=== PATIENT | male | born 1980 | race Caucasian/White ===

== ENCOUNTER 2016-06-01 23:25 | Emergency (ER) | payer OTHER ==
--- NOTE | 2016-06-02 03:10 | ED NURSING NOTES ---
Clinical Report - [facility] [place] [address] 06/01/2016 23:26 Patient: THU MASON TRIAGE Triage time 23:35 Jun 01 2016. Acuity: LEVEL 3. Chief Complaint: DRUG OVERDOSE and SUICIDE ATTEMPT. Alert. BRAYAN COMA SCORE: [place] Coma Scale: 15- eyes open spontaneously (4); best verbal response- oriented x 4 (5); best motor response- obeys commands (6). --23:48 Chilo Mosley R.N. 23:38 06/01/16. BP: 140/110. HR: 98. RR: 16. O2 saturation: 96% on room air. Temp: 98.2 F. --23:48 Chilo Mosley R.N. 23:38 06/01/16. Pain level now: 0/10. --07:14 Chilo Mosley R.N. Weight: 74.8 kg stated. Height/Length: 71 inches Per Patient. BMI: 23. --23:42 Chilo Mosley R.N. Medications None. --23:42 Chilo Mosley R.N. Allergies No Known Drug Allergy. --23:42 Chilo Mosley R.N. History Arrived by private vehicle. Historian: patient. Unaccompanied. Primary physician (none). ( Intentional Drug OD. Pt states that he is not sure what kind of pills he took, that they were his mother's and he thinks that they were sedatives.). This occurred about 30 minutes ago. He has had depression and suicidal thoughts. 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 SOCIAL HX: Heavy tobacco smoker (cigarette)- 1 pack per day. Alcohol use. (Mary 4 shots tonight). History of occasional drug use: marijuana. No infectious disease exposure. ABUSE ASSESSMENT: No report of abuse. SELF HARM ASSESSMENT: A self harm assessment was performed. The patient answered "yes" to the question "Have you recently felt down, depressed, or hopeless?", "Have you noticed less interest or pleasure in doing things?", "Do you have thoughts of harming or killing yourself?", "Are you here because you tried to hurt yourself?" and "Have you ever tried to hurt yourself before today?" and "no" to the question "Have you recently had thoughts about harming or killing others?" and "Do you have any dangerous items in your possession?". The patient reports their behavior. In the ED the patient has made suicidal comments. He has been placed under 1-on-1 and continuous supervision. He was placed in direct sight of the nurses station. Clothes and valuables were removed and placed in a safe. The ED physician has been notified. FALL RISK ASSESSMENT: Fall risk assessment completed. No fall risk identified. NUTRITIONAL RISK ASSESSMENT: The nutritional risk assessment revealed no deficiencies. FUNCTIONAL ASSESSMENT: Functional assessment: no impairments noted. LEARNING NEEDS ASSESSMENT: The learning needs assessment revealed no barriers. SKIN INTEGRITY ASSESSMENT: Skin integrity risk assessment completed. No skin integrity risk identified. --23:48 Chilo Mosley R.N. PROBLEMS: Nerve Injury, Upper Extremity. Ganglion Cyst. Contusion. Lifestyle / Substance Problems. Hypertension. Tetanus Status. Bipolar Disorder. Depression. Diverticulitis. Herpes Zoster. --23:44 Chilo Mosley R.N. Interventions ID band on patient. To treatment room. --23:48 Chilo Mosley R.N. PHYSICAL ASSESSMENT 01:00 06/02/16. Ambulatory to room. GENERAL / NEURO / PSYCH: Alert. Oriented X 4. Appears in no acute distress. Appears frustrated. Patient appears calm and cooperative. Gag reflex present. Speech within normal limits. RESPIRATORY: Respirations not labored. Breath sounds within normal limits. CVS: Normal sinus rhythm noted. Capillary refill less than 2 seconds. GI / : Abdomen soft and nontender. Bowel sounds within normal limits. SKIN: Skin intact. Skin is warm and dry. Skin color is within normal limits. --01:31 Chilo Mosley R.N. NURSING PROGRESS NOTES EKG time: (0000). EKG was ordered, performed by a tech and shown to the ED physician. --00:02 Susanne Lala 01:07 06/02/2016 Site #1 started via IV in the left antecubital space with an 20g angiocath, with aseptic technique; one attempt. Blood drawn: rainbow set. Labeled in the presence of the patient and sent to the lab. Saline lock flushed with 10 mL saline. --01:13 Karina Lira R.N. 01:07 06/02/2016 Started bag #1 1000 mL IV Fluids IV NS (Saline); at 999 mL/hr over 1 hour(s) via site #1 via IV pump. Allergies verified and confirmed 5 rights. IV patency established. IV site checked: no pain, redness, or swelling. IV flushed thoroughly pre- and post-medication administration. --01:14 Karina Lira R.N. 23:45. Patient gowned. Reassurance given. Suicide precautions initiated. Patient identifiers checked. Call light placed in reach. Side rails up x 1. Bed placed in lowest position. Brakes of bed on. Patient ready for evaluation- chart flagged and ED physician notified. --01:33 Chilo Mosley R.N. pt just medically cleared by . --02:18 Karina Lira R.N. ( PAT TEAM NOTIFIED). --02:25 Adryan Malave, ER Instructor Traffic Safety 02:20 06/02/16. BP: 123/75. HR: 84. O2 saturation: 95%. Temp: 98.1 F. --02:26 Susanne Lala 03:40 06/02/2016 Magnesium Sulfate (Magnesium Sulfate in D5W) IVP 2 gm given over 2 hour(s) via site #1. Allergies verified and confirmed 5 rights. IV patency established. IV site checked: no pain, redness, or swelling. IV flushed thoroughly pre- and post-medication administration. IVP given by RN. --03:50 Chilo Mosley R.N. 03:50 06/02/16. ( PAT account retention representative here with pt). --03:52 Chilo Mosley R.N. 01:00 06/02/16. BP: 121/77. HR: 98. RR: 16. O2 saturation: 95% on room air. Pain level now: 0/10. --03:54 Chilo Mosley R.N. 02:00 06/02/16. BP: 124/78. HR: 93. RR: 16. O2 saturation: 95% on room air. Pain level now: 0/10. --03:55 Chilo Mosley R.N. 03:00 06/02/16. BP: 118/71. HR: 97. RR: 13. O2 saturation: 95% on room air. --03:57 Chilo Mosley R.N. 04:25. ( Magnesium 1 GM IVPB completed). --06:19 Chilo Mosley R.N. 01:40 06/02/2016 Potassium Chloride (Potassium Chloride ER) PO Tablets 60 meq given. Allergies verified and confirmed 5 rights. --06:22 Chilo Mosley R.N. 04:25 06/02/2016 Site #1 removed upon admission. Catheter intact. Manual pressure, bandaid and bandage applied. --06:20 Chilo Mosley R.N. <<STRICKEN ENTRY-- 06:41 06/02/16. BP: 149/94. HR: 104. RR: 16. O2 saturation: 97%. Temp: 99 F. Pain level now: 11/28. --06:42 Chilo Mosley R.N. --END STRIKE>> Charted on wrong patient. --07:10 Chilo Mosley R.N. 02:10 06/02/2016 IV Fluids IV NS Discontinued: bag #1 infused. Total amount infused: 1000 mL. IV patency established. IV site checked: no pain, redness, or swelling. IV flushed thoroughly. --07:12 Chlio Mosley R.N. DISPOSITION / DISCHARGE Departure time: 0430. --04:55 Chilo Mosley R.N. 04:30. Condition at departure: improved. No learning barriers present. Discharge instructions provided and reviewed with the patient and parent. Reviewed medication(s) (prescritpion given to pt). Reviewed referral to a psychologist for followup. Patient and parent verbalized understanding. Written instructions provided in Vietnamese. The patient was discharged by the physician. He was discharged home and accompanied by parent. He left the Emergency Department ambulatory and via private vehicle. Parent driving. --04:57 Chilo Mosley R.N. 04:25 06/02/16. BP: 117/76. HR: 62. RR: 16. O2 saturation: 99% on room air. Temp: 98.5 F (oral). Pain level now: 0/10. --04:59 Chilo Mosley R.N. Locked/Released at 06/02/2016 7:16 by Chilo Mosley R.N.
--- NOTE | 2016-06-02 03:10 | ED ORDER SUMMARY ---
..... Patient: THU MASON OrderSheet [facility] VisitID: [id number] [address] [place] [address] 36y, M Registration Date/Time: 06/01/2016 ORDER SHEET Weight: 74.8 kg (stated) Allergies: No Known Drug Allergy GENERAL ORDERS: Client Relations Associate (Continuous) (possible OD) (23:34 06/01/2016 Christopher Rodriguez) (1:14 JRomanelli R.N.) (1:15 HKone R.N.) CBC w Diff Urgent (23:35 06/01/2016 Christopher Rodriguez) (Ack 23:37 CHagtomy ER Chore Tender) (1:24 Stephon R.N.) CMP Urgent (23:35 06/01/2016 Christopher Rodriguez) (Ack 23:37 CHagerty ER Chore Tender) (1:24 Juanelli R.N.) UA-Culture if indicated Urgent (23:35 06/01/2016 Christopher Rodriguez) (Ack 23:37 CHagerty ER Chore Tender) (3:47 Stephon R.N.) PT with INR Urgent (23:35 06/01/2016 Christopher Rodriguez) (Ack 23:37 CHagtomy ER Chore Tender) (1:24 JRomanelli R.N.) PTT Urgent (23:35 06/01/2016 Christopher Rodriguez) (Ack 23:37 CHagerty ER Chore Tender) (1:24 omanwilner R.N.) Urine Drug Screen Urgent (23:35 06/01/2016 Christopher Rodriguez) (Ack 23:37 CHagerty ER Chore Tender) (3:47 Stephon R.N.) CPK Urgent (23:35 06/01/2016 Christopher Rodriguez) (Ack 23:37 CHagerty ER Chore Tender) (1:24 Stephon R.N.) Salicylate Level Urgent (23:35 06/01/2016 Christopher Rodriguez) (Ack 23:37 CHagerty ER Chore Tender) (1:24 Stephon R.N.) Ethyl Alcohol Urgent (23:35 06/01/2016 Christopher Rodriguez) (Ack 23:37 CHagerty ER Chore Tender) (1:24 Stephon R.NOle) Acetaminophen Level Urgent (23:35 06/01/2016 Christopher Rodriguez) (Ack 23:37 Gary ER Chore Tender) (1:24 Stephon R.N.) EKG - ER Stat (23:35 06/01/2016 Christopher Rodriguez) (0:07 Jocelynnegekimana) Pulse oximeter (23:35 06/01/2016 Christopher Rodriguez) (1:15 HKone R.N.) MEDICATION ORDERS: Potassium Chloride PO 60 meq (NOW) (01:38 06/02/2016 Christopher Rodriguez) (Ack 2:09 Rey R.NOle) (6:22 Stephon Lyons.N.) IV FLUIDS: IV NS : initial bolus 1000 mL (1000 mL/hr), then none - for X1 (NOW) (23:35 06/01/2016 Christopher Rodriguez) (1:14 Rey R.N.) Magnesium Sulfate IV 2 gm/50mL (over 2 hours) (03:49 06/02/2016 Stephon Lemon verbal order read back to Christopher Rodriguez) (3:50 Stephon R.NOle) ORDER SHEET NOTES: [Electronically signed by Hong Dalton Dr. (05:08 06/02/2016)] [Electronically signed by Chilo Mosley R.N. (07:16 06/02/2016)] [Electronically locked/signed by Chilo Mosley R.N. (07:16 06/02/2016)]
--- NOTE | 2016-06-02 03:10 | ED ORDER SUMMARY ---
..... Patient: THU MASON OrderSheet [facility] VisitID: [id number] [address] [place] [address] 36y, M Registration Date/Time: 06/01/2016 ORDER SHEET Weight: 74.8 kg (stated) Allergies: No Known Drug Allergy GENERAL ORDERS: Traveling Storekeeper (Continuous) (possible OD) (23:34 06/01/2016 Christopher Rodriguez) (1:14 JRomanelli R.N.) (1:15 HKone R.N.) CBC w Diff Urgent (23:35 06/01/2016 Christopher Rodriguez) (Ack 23:37 CHagtomy ER Banner Painter) (1:24 Stephon R.N.) CMP Urgent (23:35 06/01/2016 Christopher Rodriguez) (Ack 23:37 CHagerty ER Banner Painter) (1:24 Juanelli R.N.) UA-Culture if indicated Urgent (23:35 06/01/2016 Christopher Rodriguez) (Ack 23:37 CHagerty ER Banner Painter) (3:47 Stephon R.N.) PT with INR Urgent (23:35 06/01/2016 Christopher Rodriguez) (Ack 23:37 CHagtomy ER Banner Painter) (1:24 JRomanelli R.N.) PTT Urgent (23:35 06/01/2016 Christopher Rodriguez) (Ack 23:37 CHagerty ER Banner Painter) (1:24 omanwilner R.N.) Urine Drug Screen Urgent (23:35 06/01/2016 Christopher Rodriguez) (Ack 23:37 CHagerty ER Banner Painter) (3:47 Stephon R.N.) CPK Urgent (23:35 06/01/2016 Christopher Rodriguez) (Ack 23:37 CHagerty ER Banner Painter) (1:24 Stephon R.N.) Salicylate Level Urgent (23:35 06/01/2016 Christopher Rodriguez) (Ack 23:37 CHagerty ER Banner Painter) (1:24 Stephon R.N.) Ethyl Alcohol Urgent (23:35 06/01/2016 Christopher Rodriguez) (Ack 23:37 CHagerty ER Banner Painter) (1:24 Stephon R.NOle) Acetaminophen Level Urgent (23:35 06/01/2016 Christopher Rodriguez) (Ack 23:37 Gary ER Banner Painter) (1:24 Stephon R.N.) EKG - ER Stat (23:35 06/01/2016 Christopher Rodriguez) (0:07 Jocelynnegekimana) Pulse oximeter (23:35 06/01/2016 Christopher Rodriguez) (1:15 HKone R.N.) MEDICATION ORDERS: Potassium Chloride PO 60 meq (NOW) (01:38 06/02/2016 Christopher Rodriguez) (Ack 2:09 Rey R.NOle) (6:22 Stephon Lyons.N.) IV FLUIDS: IV NS : initial bolus 1000 mL (1000 mL/hr), then none - for X1 (NOW) (23:35 06/01/2016 Christopher Rodriguez) (1:14 Rey R.N.) Magnesium Sulfate IV 2 gm/50mL (over 2 hours) (03:49 06/02/2016 Stephon Lemon verbal order read back to Christopher Rodriguez) (3:50 Stephon R.NOle) ORDER SHEET NOTES: [Electronically signed by Hong Dalton Dr. (05:08 06/02/2016)] [Electronically signed by Chilo Mosley R.N. (07:16 06/02/2016)] [Electronically locked/signed by Chilo Mosley R.N. (07:16 06/02/2016)]
--- NOTE | 2016-06-02 03:10 | ED CLINICAL REPORT ---
Clinical Report - Physicians/Mid Levels [facility] [address] [place] [address] 06/01/2016 23:26 Patient: THU MASON Arrived- By private vehicle. Historian- patient. HISTORY OF PRESENT ILLNESS Chief Complaint: DRUG OVERDOSE and SELF-INJURY. This occurred today. No toxic symptoms present. No toxic symptoms present. Multiple drugs taken- does not know the pills. The patient sought help. He has experienced situational problems. Alcohol consumption recently. The symptoms are described as moderate. The patient has been upset. Has had suicidal thoughts. Similar symptoms previously: Many times. Recent medical care: Not recently seen/assessed. REVIEW OF SYSTEMS No chest pain or abdominal pain. All systems otherwise negative, except as recorded above. PAST HISTORY See nurses notes. Medications: None. Allergies: No Known Drug Allergy. SOCIAL HISTORY Smoker- current status unknown. Occasional alcohol use. History of occasional drug use: marijuana. Has social support. Has place to stay. FAMILY HISTORY Negative. ADDITIONAL NOTES The nursing notes have been reviewed. PHYSICAL EXAM Vital Signs: 06/01/2016 23:38 BP: 140/110. HR: 98. RR: 16. O2 saturation: 96%. Temp: 98.2 F. Blood pressure normal. Oxygen saturation normal. Appearance: Alert. Oriented X3. No acute distress. Eyes: Pupils equal, round and reactive to light. No nystagmus. Extraocular movements normal. ENT: Normal ENT inspection. TM's normal. Pharynx normal. Neck: Normal inspection. Neck supple. CVS: Normal heart rate and rhythm. Heart sounds normal. Pulses normal. Respiratory: No respiratory distress. Breath sounds normal. Abdomen: Soft and nontender. No organomegaly. Back: Normal inspection. Skin: Skin warm and dry. Normal skin color. No rash. Normal skin turgor. Extremities: Extremities exhibit normal ROM. No lower extremity edema. Neuro: Alert. Oriented X 3. Speech normal. Cranial nerves normal (as tested). No cerebellar findings. No motor deficit. No sensory deficit. (no HI or hallucinations. + SI. Patient is tearful and upset. Mood is depressed. Affect is congruent.). LABS, X-RAYS, AND EKG EKG: No acute ischemia. Tachycardia (101). Normal P waves. Normal YVETTE. Normal QRS complex. LVH. Normal axis. Normal ST and T waves, QT and QTc. sinus tach with minimal possible LVH VS normal variant. The study has been interpreted contemporaneously by me. The study has been independently viewed by me. The EKG appears to be a good tracing. Laboratory Tests: UA-Culture if indicated: (SCOTT: 06/02/2016 01:30) ( MsgRcvd 06/02/2016 01:47) Final results Test Result Flag Units (Reference) URINE COLOR YELLOW URINE APPEARANCE CLEAR URINE GLUCOSE NEGATIVE (NEGATIVE) URINE BILIRUBIN NEGATIVE (NEGATIVE) URINE KETONE NEGATIVE (NEGATIVE) URINE SPECIFIC GRAVITY <= 1.005 L (1.010-1.030) URINE PH 7.0 (5.0-8.0) URINE PROTEIN NEGATIVE (NEGATIVE) URINE UROBILINOGEN 0.2 EU/dL (0.2-1.0) URINE NITRITE NEGATIVE (NEGATIVE) URINE BLOOD NEGATIVE (NEGATIVE) URINE LEUK ESTERASE NEGATIVE (NEGATIVE) URINE RBC 0-1 rbc/hpf (0-1) URINE WBC 0-1 wbc/hpf (0-1) URINE EPITHELIAL CELLS 0-1 EPI/hpf (0-5) URINE BACTERIA NONE SEEN (NONE SEEN) URINE COMMENT CULT NOT INDICATED URINE CULTURES ARE SET-UP BASED ON THE FOLLOWING CRITERIA:POSITIVE NITRITEPOSITIVE LEUKOCYTE ESTERASEGREATER THAN 10 WHITE BLOOD CELLSMODERATE (2+) OR GREATER BACTERIA CBC w Diff: (SCOTT: 06/02/2016 01:00) ( Mscvd 06/02/2016 01:18) Final results Test Result Flag Units (Reference) WHITE BLOOD COUNT 13.0 H K/uL (4.5-11.5) RED BLOOD COUNT 5.72 M/uL (4.50-5.90) HEMOGLOBIN 17.5 gm/dL (13.5-17.5) HEMATOCRIT 52.5 % (41.0-53.0) MEAN CELL VOLUME 92 fL (80-100) MEAN CORPUSCULAR HGB 31 pg (26-34) MEAN CORPUSCULAR HGB CONC 33 g/dL (31-37) RED CELL DISTRIBUTION WIDTH 13.1 % (11.6-14.8) PLATELET COUNT 244 K/uL (150-400) NEUTROPHIL % 73.0 % (50-75) LYMPH % 22.9 L % (25-40) MONO % 3.5 % (3-14) EOSINOPHIL % 0.3 % (0-4) BASOPHIL % 0.3 % (0-2) PT with INR: (SCOTT: 06/02/2016 01:00) ( MsgRcvd 06/02/2016 01:27) Final results Test Result Flag Units (Reference) INR 1.0 (0.8-1.2) Low Intensity Therapy: INR 1.5-2.0 PT range 18.5-23.1Mod.Intensity Therapy: INR 2.0-3.0 PT range 23.1-31.5High Intensity Therapy: INR 2.5-3.5 PT range 27.4-35.5High Intensity Therapy 2: INR 3.0-4.0 PT range 31.5-39.3 APTT 24 SECONDS (24-34) Urine Drug Screen: (SCOTT: 06/02/2016 01:30) ( MsgRcvd 06/02/2016 01:55) Final results Test Result Flag Units (Reference) AMPHETAMINE/METHAMPHETAMINE NEGATIVE (NEGATIVE) BARBITURATE NEGATIVE (NEGATIVE) BENZODIAZEPINE NEGATIVE (NEGATIVE) CANNABINOID NEGATIVE (NEGATIVE) COCAINE NEGATIVE (NEGATIVE) ECSTASY NEGATIVE (NEGATIVE) METHADONE NEGATIVE (NEGATIVE) OPIATE NEGATIVE (NEGATIVE) The urine drug screen is a qualitative screening test fordrug overdose and abuse. All screen results should beconsidered as presumptive.Drugs screened for are as follows:BenzodiazepinesCocaineAmphetamines/MetamphetaminesTHC (Tetrahydrocannabinol)OpiatesBarbituratesEcstasyMethadonePositive results are unconfirmed. For confirmation, notifythe lab for the specimen to be sent to the reference lab.All confirmations must be performed by a differentmethodology.The ingestion of natural herbal and plant productscontaining Ephedra/Ephedra metabolites can produce in urineone or more substances capable of cross reacting withamphetamine/methamphetamine immunoassays. These testsprovide a preliminary result only. A more specificalternative chemical method must be used to obtain aconfirmed analytical result. Salicylate Level: (SCOTT: 06/02/2016 01:00) ( MsgRcvd 06/02/2016 01:27) Final results Test Result Flag Units (Reference) SALICYLATE 4.9 mg/dL (2.8-20) CMP: (SCOTT: 06/02/2016 01:00) ( MsgRcvd 06/02/2016 01:39) Final results Test Result Flag Units (Reference) GLUCOSE 113 H mg/dL (70-110) BUN 5 L mg/dL (7-18) CREATININE 1.0 mg/dL (0.6-1.3) Estimated GFR >60 mL/min Estimated GFR- >60 mL/min Note: Persistent reduction over 3 months in eGFR<60 mL/min/1.73 m2 defines CKD. Patients with eGFR values>=60 mL/min/1.73 m2 may also have CKD if evidence ofpersistent proteinuria. Additional information may be foundat www.kidney.org. SODIUM 137 mmol/L (136-145) POTASSIUM 2.9 *L mmol/L (3.5-5.1) CRITICAL RESULTS CALLEDCalled to ALEX WRIGHT RN 06/02/16 0138Were 2 patient identifiers used? YWas the result read back? Y CHLORIDE 97 L mmol/L (98-107) CARBON DIOXIDE 29 mmol/L (21-32) CALCIUM 10.4 H mg/dL (8.5-10.1) TOTAL PROTEIN 8.4 H g/dL (6.4-8.2) ALBUMIN 4.8 g/dL (3.3-5.0) BILIRUBIN, TOTAL 1.0 mg/dL (0.0-1.0) ALKALINE PHOSPHATASE 104 U/L (46-116) AST (SGOT) 17 U/L (15-37) ALT (SGPT) 29 U/L (12-78) CPK 89 U/L (24-260) ETHYL ALCOHOL 27 H mg/dL (3-10) MAGNESIUM 1.6 L mg/dL (1.8-2.4) ACETAMINOPHEN < 3 L ug/mL (10-30) . PROGRESS AND PROCEDURES Course of Care: The patient is a pleasant cooperative 36-year-old male with past medical history significant for suicide attempts in the past presenting for evaluation of alleged ingestion. The patient is resting in bed in no acute distress. No signs of toxic ingestion at this time. Workup ordered for acute toxic ingestion ordered. Patient is agreeable to the treatment and plan. Will have patient evaluated by crisis counselor once patient has been medically cleared. Workup does not show any acute abdomen allergies other than hypokalemia and hypomagnesemia. Potassium and magnesium ordered. No acute abnormalities noted on EKG. Patient was evaluated by counselor. Patient is able to contract for safety. Patient has an appointment tomorrow at around 2:00pm. Patient is agreeable to the treatment and plan. Patient will be followed home by father. The father appears to be reliable at this time. Patient's father has also agreed to monitor patient. State that they're comfortable with returning home. Discussed with patient workup, diagnosis, home care, follow-up, and return cautions. All questions answered. The patient expressed understanding of these instructions and was agreeable to them. Did not feel patient is a danger to self or others at this time. Although the patient states that he has ingested multiple pills, did not find any signs of toxic abnormalities. Urine drug screen is negative. No signs of opioids or anytype of prescription medication otherwise. Patient also continues to be asymptomatic. Low likelihood of actual ingestion. CLINICAL IMPRESSION Intentional multi-drug overdose (unknown pills). 06/02/2016 03:00 BP: 118/71. HR: 97. RR: 13. O2 saturation: 95%. 06/02/2016 02:20 BP: 123/75. HR: 84. O2 saturation: 95%. Temp: 98.1 F. Adjustment disorder with depressed mood (acute). Blood pressure normal. Oxygen saturation normal. Hypokalemia (acute moderate without EKG changes). Mild hypomagnesemia. INSTRUCTIONS (Follow up as instructed by the crisis counselor). Warnings: GENERAL WARNINGS: Return or contact your physician immediately if your condition worsens or changes unexpectedly, if not improving as expected, or if other problems arise. Specifically return if pain, vomiting, bleeding, breathing difficulty or fever. worsening symptoms or other concerns. Your Current Medications: CONTINUE TAKING THE FOLLOWING MEDICATIONS: None*. Prescription Medications: Potassium Chloride 10 mEq: take 1 orally every 12 hours - Dispense thirty (30) No refills. Follow-up: Return to the emergency department as needed. Follow up with your doctor in three days. Reason for referral: recheck today's concerns. Summary of care provided to patient via paper. Screening today revealed the patient's blood pressure to be in the normal range. The patient should follow up with a primary care provider for blood pressure management. Understanding of the discharge instructions verbalized by patient. (Electronically signed by Hong Dalton Dr. 06/02/2016 5:08)
--- NOTE | 2016-06-02 07:17 | ED MAR SUMMARY ---
..... Medication Administration Record [facility] [address] [place] [address] Patient: THU MASON Visit ID: [id number] 36y, M Weight: 74.8 kg Height/Length: 71 in BMI: 23 ALLERGIES: No Known Drug Allergy Start 01:07 06/02/2016 Karina Lira R.N., Stop 02:10 06/02/2016 Chilo Mosley R.N. Medication Administered: IV NS (SALINE), Dose: IV Fluids over 1 hour(s), Rate: 999 mL/hr, Dispensed: 1000 mL bag, Site: #1 left AC. Medication Ordered: IV NS : initial bolus 1000 mL (1000 mL/hr), then none - for X1 (NOW). Given 01:40 06/02/2016 Chilo Mosley ROleN. Medication Administered: POTASSIUM CHLORIDE [PO] (POTASSIUM CHLORIDE ER), Dose: 60 meq Tablets PO. Medication Ordered: Potassium Chloride PO 60 meq (NOW). Given 03:40 06/02/2016 Chilo Mosley ROleN. Medication Administered: MAGNESIUM SULFATE [IVP] (MAGNESIUM SULFATE IN D5W), Dose: 2 gm IVP over 2 hour(s), Site: #1 left AC. Medication Ordered: Magnesium Sulfate IV 2 gm/50mL (over 2 hours).
--- NOTE | 2016-06-02 07:17 | ED MAR SUMMARY ---
..... Medication Administration Record [facility] [address] [place] [address] Patient: THU MASON Visit ID: [id number] 36y, M Weight: 74.8 kg Height/Length: 71 in BMI: 23 ALLERGIES: No Known Drug Allergy Start 01:07 06/02/2016 Karina Lira R.N., Stop 02:10 06/02/2016 Chilo Mosley R.N. Medication Administered: IV NS (SALINE), Dose: IV Fluids over 1 hour(s), Rate: 999 mL/hr, Dispensed: 1000 mL bag, Site: #1 left AC. Medication Ordered: IV NS : initial bolus 1000 mL (1000 mL/hr), then none - for X1 (NOW). Given 01:40 06/02/2016 Chilo Mosley ROleN. Medication Administered: POTASSIUM CHLORIDE [PO] (POTASSIUM CHLORIDE ER), Dose: 60 meq Tablets PO. Medication Ordered: Potassium Chloride PO 60 meq (NOW). Given 03:40 06/02/2016 Chilo Mosley ROleN. Medication Administered: MAGNESIUM SULFATE [IVP] (MAGNESIUM SULFATE IN D5W), Dose: 2 gm IVP over 2 hour(s), Site: #1 left AC. Medication Ordered: Magnesium Sulfate IV 2 gm/50mL (over 2 hours).
--- NOTE | 2016-06-02 07:17 | ED MED RECONCILIATION SUMMARY ---
Patient: THU MASON Medication Reconciliation Report [facility] VisitID: [id number] [address] [place] [address] 36y, M Registration Date/Time: 06/01/2016 Weight: 74.8 kg Height/Length: 71 in. BMI: 23.0 ALLERGIES: No Known Drug Allergy The patient's Home Medications are listed below: NONE. The source(s) of the original Home Medication information: Not obtained. The following Medications were given to the patient in the Emergency Department: IV NS IV Fluids bolus 0, then 999 mL/hr, administered: 06/02/2016 1:07:00 AM Magnesium Sulfate [IVP] IVP 2 gm, administered: 06/02/2016 3:40:00 AM Potassium Chloride [PO] PO 60 meq, administered: 06/02/2016 1:40:00 AM The following Medications were prescribed to the patient: Potassium Chloride 10 mEq: take 1 orally every 12 hours - Dispense thirty (30) No refills. -- Hong Dalton Dr.
--- NOTE | 2016-06-02 07:17 | ED DISCHARGE INSTRUCTIONS ---
Patient: THU MASNO General Instructions [facility] VisitID: [id number] [address] [place] [address] 36y, M Registration Date/Time: 06/01/2016 Intentional multi-drug overdose (unknown pills). 06/02/2016 03:00 BP: 118/71. HR: 97. RR: 13. O2 saturation: 95%. 06/02/2016 02:20 BP: 123/75. HR: 84. O2 saturation: 95%. Temp: 98.1 F. Adjustment disorder with depressed mood (acute). Blood pressure normal. Oxygen saturation normal. Hypokalemia (acute moderate without EKG changes). Mild hypomagnesemia. INSTRUCTIONS (Follow up as instructed by the crisis counselor). Warnings: GENERAL WARNINGS: Return or contact your physician immediately if your condition worsens or changes unexpectedly, if not improving as expected, or if other problems arise. Specifically return if pain, vomiting, bleeding, breathing difficulty or fever. worsening symptoms or other concerns. Your Current Medications: CONTINUE TAKING THE FOLLOWING MEDICATIONS: None*. Prescription Medications: Potassium Chloride 10 mEq: take 1 orally every 12 hours - Dispense thirty (30) No refills. Follow-up: Return to the emergency department as needed. Follow up with your doctor in three days. Reason for referral: recheck today's concerns. Summary of care provided to patient via paper. Screening today revealed the patient's blood pressure to be in the normal range. The patient should follow up with a primary care provider for blood pressure management. Understanding of the discharge instructions verbalized by patient. ADDITIONAL INFORMATION Overdose, Intentional (Adult: Psych Evaluation) You have been evaluated and treated for taking a drug or chemical product with the intent to harm yourself. There is no sign of a toxic effect at this time. It is not likely that any new symptoms will appear. As a safeguard, watch for new symptoms during the next 24 hours (see below). The exact symptom will depend on the type of drug or chemical taken. An intentional overdose is likely to be a sign that you are depressed, or that you are very angry with yourself or someone else. In order to reduce the risk of harming yourself, we will arrange for you to have a psychiatric evaluation. Home Care: If LIQUID CHARCOAL was given to neutralize what was swallowed, it will cause a black color to the stools for 1-2 days. Usually, a laxative (sorbitol) is given with charcoal to speed the removal of any toxins from the intestinal tract. This may cause diarrhea for up to 24 hours. If no laxative was given with charcoal, you may get constipated. If this occurs, you may take an ntft-hyw-kwbaber laxative such as Dulcolax pills or suppository. Follow Up with your doctor if all symptoms do not resolve within 24 hours or if constipation is not relieved by one or two doses of laxatives. If you are being discharged for immediate evaluation at a psychiatric hospital or clinic on a voluntary basis, you must go directly there with a responsible adult. If you have been placed on a legal 72 hour psychiatric hold, a ride to a psychiatric facility will be arranged for you. Get Prompt Medical Attention if any of the following occur: Excess drowsiness or inability to be awakened Rapid heart beat, you feel shaky, or you have a seizure Fast breathing (over 25 breaths/minute) or slow breathing (less than 8 breaths/minute) Feeling shortness of breath Fever of 100.4F (38C) or higher, or as directed by your healthcare provider Vomiting or diarrhea for more than 24 hours Blood in stools or vomit (black or red color) Chest or abdominal pain Dizziness, weakness or fainting Thoughts of harming yourself again Adjustment Disorder An adjustment disorder is a condition that results from having a hard time coping with the normal stresses of life. You may feel you have too much to do and cant get it all done. These feelings may be triggered by divorce, job loss, someone you know dying, or by a positive event like getting a new job or getting . These feelings may interfere with your relationships at home and at work. With this condition, it is common to feel sad, guilty, hopeless and restless. These feelings may continue for weeks or months. It can be helpful to identify what is causing the additional stress and takes steps to get extra support. If new stressful events do not occur, it is likely that you will start feeling better within six months. Home Care: If you have been given a prescription for medicine, take it as directed. It helps to talk about your feelings and thoughts with family or friends that understand and support you. Follow Up with your doctor or therapist as advised by our staff. Let them know if this condition lasts more than six months without sign of improvement. For more information, contact the [employer] [place] [employer] at 988-088-1794 or visit www.amy.org. Get Prompt Medical Attention if any of the following occur: Worsening depression or anxiety Feeling out of control Thoughts of harming yourself or another Being unable to care for yourself Hypokalemia Hypokalemia means a low level of potassium in the blood. This most often occurs in patients who take diuretics (water pills). It can also occur due to severe vomiting or diarrhea. A mild case usually causes no symptoms. It is only found with blood testing. More severe potassium loss causes generalized weakness, muscle or abdominal cramping, heart palpitations (rapid or irregular heartbeats) and low blood pressure. Home Care: 1) Take any potassium supplements prescribed. 2) Eat foods rich in potassium. The highest amount is found in artichoke, baked potatoes, spinach, cantaloupe, honeydew melon, cod, halibut, salmon, and scallops. White, red, or dixon beans are also very good sources. A modest amount is found in orange juice, bananas, carrots, and tomato juice. 3) Certain types of diuretics (water pills), such as Lasix (furosemide), require that you take potassium supplements for as long as you take the diuretic pills. If you are taking a diuretic, discuss the need for potassium supplements with your doctor. Follow Up with your doctor for a repeat blood test within the next week or as advised by our staff. Get Prompt Medical Attention if any of the following occur: -- Increased weakness -- Feeling dizzy -- Irregular heartbeat, extra beats or very fast heart rate -- Fainting spell You have been given the following additional information: Overdose, Intentional (Adult) Adjustment Disorder Hypokalemia (Electronically signed by Hong Dalton Dr. 06/02/2016 5:08)
--- NOTE | 2016-06-02 07:17 | ED MED RECONCILIATION SUMMARY ---
Patient: THU MASON Medication Reconciliation Report [facility] VisitID: [id number] [address] [place] [address] 36y, M Registration Date/Time: 06/01/2016 Weight: 74.8 kg Height/Length: 71 in. BMI: 23.0 ALLERGIES: No Known Drug Allergy The patient's Home Medications are listed below: NONE. The source(s) of the original Home Medication information: Not obtained. The following Medications were given to the patient in the Emergency Department: IV NS IV Fluids bolus 0, then 999 mL/hr, administered: 06/02/2016 1:07:00 AM Magnesium Sulfate [IVP] IVP 2 gm, administered: 06/02/2016 3:40:00 AM Potassium Chloride [PO] PO 60 meq, administered: 06/02/2016 1:40:00 AM The following Medications were prescribed to the patient: Potassium Chloride 10 mEq: take 1 orally every 12 hours - Dispense thirty (30) No refills. -- Hong Dalton Dr.
== END 2016-06-02 04:30 | disposition home or self-care (01) ==
LOC: ED SRH 23:25
DX: T50.902A Poisoning by unspecified drugs, medicaments and biological substances, intentional self-harm, initial encounter (principal); E83.42 Hypomagnesemia; E87.6 Hypokalemia; F43.21 Adjustment disorder with depressed mood; I10 Essential (primary) hypertension; F31.9 Bipolar disorder, unspecified
CPT/HCPCS: 90004; 90100; 92010; 92610; 92720; 92760; 92761; 92762; 92763; 92764; 92765; 92766; 92767; 92780; 94001; 94060; 95059; 97000